=== PATIENT | female | born 1950 | race Caucasian/White ===

== ENCOUNTER 2016-07-24 12:30 | Inpatient (IN) | payer OTHER, MEDICARE ==
[~2016-07-24] VITALS: Ht 165.1 cm; Wt 88.7 kg
[2016-08-05] MEDS ORDERED: TRAM50TA PO (14:08)
[2016-08-05] MEDS ORDERED: MIRTA15 PO (14:08)
[2016-08-05] MEDS ORDERED: ALEN1TAB48 PO (14:08)
[2016-08-05] MEDS ORDERED: AMLO5TAB2 PO (14:08)
[2016-08-05] MEDS ORDERED: OMEP20TA PO (14:08)
[2016-08-05] MEDS ORDERED: LOSA100T PO (14:08)
[2016-08-18] MEDS ORDERED: PROPOFOL 200 MG/20 ML AMP IV ONE (08:54)
[2016-08-18] MEDS ORDERED: PHENYLEPH/NS 1000 MCG/10 ML SYR IV ONE (08:54)
[2016-08-18] MEDS ORDERED: ONDANSETRON HCL 4 MG/2 ML VIAL IV PUSH ONE (08:54)
[2016-08-18] MEDS ORDERED: NEOSTIGMINE METHYLSULFATE 10 MG/10 ML VIAL IV PUSH ONE (08:54)
[2016-08-18 10:36] VITALS: BP 133/81; PULSE 90; RESP 20; TEMP 99.3; O2SAT 95
[2016-08-18] MEDS: CHLORHEXIDINE GLUCONATE 4% SOLN 120 ML BTL TOP SCH (10:45)
[2016-08-18] MEDS ORDERED: SODIUM CHLORID 0.9% 500 ML IV SCH (10:45)
[2016-08-18] MEDS ORDERED: INSULIN HUMAN REGULAR 1,000 UNITS/10 ML VIAL SQ PRN (10:45)
[2016-08-18] MEDS ORDERED: VANCOMYCIN 1000 MG/NS 250 ML (for <70 kg) IV SCH ×2 (10:45)
[2016-08-18] MEDS ORDERED: ceFAZolin 2 GM PREMIX 50 ML IV SCH (10:45)
[2016-08-18] MEDS ORDERED: METOPROLOL TARTRATE 25 MG TAB PO PRN (10:45)
[2016-08-18] MEDS ORDERED: LACTATED RINGER'S 1000 ML IV SCH (10:45)
[2016-08-18] MEDS ORDERED: FAMOTIDINE 20 MG/2 ML VIAL ONE (11:22)
[2016-08-18] MEDS ORDERED: MIDAZOLAM HCL 5 MG/5 ML VIAL ONE (11:22)
[2016-08-18] MEDS ORDERED: BUPIVACAINE HCL PF 0.25% 30 ML VIAL NB ONE (12:06)
[2016-08-18] MEDS ORDERED: GENTAMICIN SULFATE 80 MG/2 ML VIAL IRRIGATION ONE (12:20)
[2016-08-18] MEDS ORDERED: BUPIVACAINE HCL PF 0.5% 30 ML VIAL NB ONE (12:47)
--- NOTE | 2016-08-18 14:25 | PD.OP ---
cc: Johnny Carreno MD Operative Report Date of Surgery: Aug 18, 2016 Preoperative Diagnosis: (1) Osteoarthritis of right knee Postoperative Diagnosis: (1) Osteoarthritis of right knee Procedure: Right total knee arthroplasty Implants used: Biomet Vanguard total knee system size 62.5 press-fit femoral component, size 67 cemented tibial component, size 34 cemented polyethylene patellar button and a 14 mm polyethylene tibial bearing Anesthesia: General with preoperative regional block Surgeon: Johnny Carreno Die Equipment Operator(s): Monae Hudson PA-C ([place]) The surgical procedure was assisted by my physician's assistant softball coach. Her presence was necessary throughout the case for manipulation and positioning of the surgical extremity. My PA was assisting me throughout the duration of this procedure. The skill set of the physician assistant softball coach was medically necessary to complete this procedure. During the surgical case the surgical manager was working at the back table and the physician assistant softball coach was directly assisting me. Operation and Findings: Indications: This 66-year-old females long history of bilateral knee osteoarthritis. She has had several treatment modalities in the past including corticosteroid injection, anti-inflammatory and pain medication, therapy, viscous supplementation and attempts at weight loss. Her problem has been persistent and progressive. She is now severely limited in her activity. X- rays are consistent with advanced osteoporosis which is more pronounced in the lateral compartment with [id number] apposition, osteophyte formation, subchondral sclerosis and associated valgus deformity. Given the alternatives of the treatment she presents for total knee arthroplasty. Procedure and findings: The patient was taken to the operative suite and after undergoing an adequate level of general anesthesia was kept supine on the operating table. Preoperative antibiotics consisted of Ancef 2 g IV and vancomycin 1 g IV. The right lower extremity was then prepped and draped in usual sterile fashion with alcohol and Hibiclens. A standard anterior approach the knee was made with incision centered over the medial one third of the patella. This was carried down through skin and subcutaneous tense tissue with a knife. The quadricep tendon was identified proximally and the patellar tendon distally. A medial parapatellar arthrotomy was made. A small joint effusion was evacuated. Upon entering the knee joint is noted to be marked degenerative changes which were tricompartmental in nature but significantly worse in the lateral compartment. The remnant of the ACL was excised. The menisci were excised. Osteophytes were removed. Attention was first focused on the distal femur where an intramedullary guide was used to make a 5 valgus cut. A sizing jig was then applied and a 62.5 selected. With the cutting block in place the anterior, posterior and chamfer cuts were made. Attention was then focused on the proximal tibia. An extramedullary guide was used. Approximately 4 mm of bone was resected. The varus/valgus alignment was also checked with an extramedullary guide. The tibia was then sized to a 67. A freehand technique was utilized on the patella. This was sized to a 34. Drill holes were made and trial components placed. The 14 mm tibial bearing gave the best range of motion and stability. There was good patellar tracking. These components were therefore selected. The femoral drill holes were made. The tibial cement punches were made. The wound was thoroughly irrigated with pulse lavage. Bone cement was prepared on the back table. After thorough drying, it was applied to the proximal tibia. The tibial component was then impacted in the place. All excess bone cement was removed. The tibial insert was then placed and the locking mechanism seated. The femoral component was then impacted in the place. The knee was then placed in full extension for further compression. After thorough drying bone cement was applied to the undersurface of the patella. The patellar button was seated and held with a compression clamp. All excess bone cement was removed. Once the cement had matured good range of motion, patellar tracking and stability was again noted. The wound was again thoroughly irrigated with pulse lavage. AutoVac drains were left in place. The incision was closed in layers utilizing #1 Vicryl suture on the extensor mechanism, 0 Vicryl suture on the deep tissue, 2-0 Vicryl suture on the subcutaneous tissue and angel on the skin. Sterile dressings were applied the patient was awakened transferred to the hospital bed and taken to the recovery room in stable condition. Estimated blood loss: 100 cc Tourniquet time: 109 minutes Complications: None Johnny Carreno MD Aug 18, 2016 14:25
[2016-08-18] MEDS ORDERED: MISCELLANEOUS NURSING INFORMATION XX PRN (14:30)
[2016-08-18] MEDS ORDERED: Post-op Orders (for Pharmacy) MISC XX ONE (14:30)
[2016-08-18] MEDS ORDERED: MORPHINE SULFATE 8 MG/ML INJ IV PUSH PRN (14:30)
[2016-08-18] MEDS ORDERED: POVIDONE IODINE 10% SOLN 118 ML BOTTLE TOPICAL PRN (14:30)
[2016-08-18] MEDS ORDERED: diphenhydrAMINE HCL 50 MG/ML VIAL IV PRN (14:30)
[2016-08-18] MEDS ORDERED: ALUMINUM/MAGNESIUM/SIMETH 30 ML CUP PO PRN (14:30)
[2016-08-18] MEDS ORDERED: ACETAMINOPHEN 325 MG TAB PO PRN (14:30)
[2016-08-18] MEDS ORDERED: MORPHINE SULFATE 30 MG/30 ML PCA IV SCH (14:30)
[2016-08-18] MEDS ORDERED: MISCELLANEOUS PHARMACY INFORMATION XX ONE (14:30)
[2016-08-18] MEDS ORDERED: BISACODYL 10 MG SUPP PR PRN (14:30)
[2016-08-18] MEDS ORDERED: SODIUM CHLORIDE 0.9% FLUSH 5 ML FLUSH IVF PRN (14:30)
[2016-08-18] MEDS ORDERED: NALOXONE HCL 0.4 MG/ML AMP IV PRN (14:30)
[2016-08-18] MEDS ORDERED: DO NOT ADM ANY ANTICOAGULANT DRUGS XX PRN (14:34)
[2016-08-18] MEDS ORDERED: MORPHINE SULFATE 30 MG/30 ML PCA ONE (14:41)
[2016-08-18] MEDS ORDERED: *morphine SULFATE 8 MG/ML PERIprocedure ONLY ONE (14:42)
[2016-08-18] MEDS ORDERED: fentaNYL CITRATE 250 MCG/5 ML AMP ONE (14:43)
[2016-08-18] MEDS ORDERED: MORPHINE SULFATE 4 MG/ML INJ ONE (14:43)
[2016-08-18] MEDS: LACTATED RINGER'S 1000 ML INJ 1,000 ML IV SCH ×2 (14:52→19:58)
[2016-08-18] MEDS ORDERED: *HYDROmorphone PF 1 MG VIAL PERIprocedural Use ONLY ONE ×2 (14:54→15:49)
--- NOTE | 2016-08-18 15:28 | RADRPT ---
EXAM DATE/TIME: 08/18/2016 14:43 [facility] COMPARISON: No previous studies available for comparison. INDICATIONS : Post op right knee. MEDICAL HISTORY : None. SURGICAL HISTORY : None. ENCOUNTER: Initial ACUITY: 1 day PAIN SCORE: Non-responsive. LOCATION: Right knee FINDINGS: 2 views of the postoperative right knee demonstrate expected postsurgical change related to total rig ht knee arthroplasty. Good anatomic alignment. No evidence of hardware complication. Joint effusion i s noted. Overlying surgical clips. CONCLUSION: Expected postsurgical changes related to total right knee arthroplasty.. Cindy Shafer MD on August 18, 2016 at 15:26 Board Certified Radiologist. This report was verified electronically.
[2016-08-18] MEDS: oxyCODONE/ACETAMINOPHEN 5 MG/325 MG TAB PO PRN ×2 (16:16→22:20)
[2016-08-18] MEDS: ceFAZolin 2 GM PREMIX 50 ML IV SCH ×2 (16:37→22:18)
[2016-08-18] MEDS ORDERED: SODIUM CHLOR 0.9% 250 ML INJ 250 ML ONE (17:24)
[2016-08-18] MEDS ORDERED: SODIUM CHLOR 0.9% 250 ML BAG IV ONE (17:37)
[2016-08-18] MEDS: SODIUM CHLORIDE 0.9% FLUSH 5 ML FLUSH IVF SCH (19:58)
[2016-08-18 20:00] VITALS: BP 118/64; PULSE 105; RESP 16; TEMP 98.5; O2SAT 95
[2016-08-18] MEDS ORDERED: TEMAZEPAM 15 MG CAP PO PRN (21:00)
[2016-08-18] MEDS: PCA - TOTAL MG MORPHINE DELIVERED PER SHIFT SCH (22:00)
[2016-08-19] VITALS (11 sets, daily range): BP systolic 119–166; BP diastolic 60–79; PULSE 110–121; RESP 16–18; TEMP 99.8–102.6; O2SAT 90–95
[2016-08-19] MEDS: ceFAZolin 2 GM PREMIX 50 ML IV SCH (05:03)
[2016-08-19] MEDS: MAGNESIUM HYDROXIDE SUSP 30 ML CUP PO PRN (05:03)
[2016-08-19] MEDS: PCA - TOTAL MG MORPHINE DELIVERED PER SHIFT SCH ×4 (06:00→23:35)
[2016-08-19 06:04] LABS: HEMATOCRIT 28.1 % (35.0-46.0); REVIEW FLAG FINAL
--- NOTE | 2016-08-19 07:07 | PD.ORT.PN ---
Subjective Post Op Day #: 1 Pain Scale: 5 Subjective Remarks The patient is awake alert and answers questions appropriately. She states she had significant pain last night but it is much better this morning. Her WELDER MACHINE OPERATOR is currently controlling her pain. She has no other specific complaint. Objective Vitals Vital Signs Date Time Temp Pulse Resp B/P Pulse Ox O2 Delivery O2 Flow Rate FiO2 08/19/16 06:00 18 08/19/16 04:00 100.9 121 17 153/67 93 08/19/16 02:47 95 Nasal Cannula 2.00 08/19/16 00:00 100.5 120 17 137/63 95 08/18/16 22:00 17 08/18/16 20:00 98.5 105 16 118/64 95 08/18/16 18:15 99.0 104 14 106/69 97 Nasal Cannula 3 08/18/16 17:37 99.0 99 14 122/49 97 Nasal Cannula 3 08/18/16 17:00 90 14 112/79 95 Nasal Cannula 3 08/18/16 16:00 88 14 143/70 95 Nasal Cannula 3 08/18/16 15:30 85 14 135/75 96 Nasal Cannula 3 08/18/16 15:15 82 14 132/87 95 Nasal Cannula 3 08/18/16 15:00 79 14 120/70 96 Nasal Cannula 4 08/18/16 14:52 14 08/18/16 14:45 91 14 144/66 97 Nasal Cannula 4 08/18/16 14:30 75 17 122/68 96 Nasal Cannula 4 08/18/16 14:23 97.8 92 17 142/62 93 Nasal Cannula 4 08/18/16 10:36 99.3 90 20 133/81 95 I/O 08/18/16 08/18/16 08/18/16 08/19/16 08/19/16 08/19/16 07:00 15:00 23:00 07:00 15:00 23:00 Intake Total 2000 ml 922 ml 240 ml Output Total 310 ml 1125 ml 620 ml Balance 1690 ml -203 ml -380 ml Intake Oral 290 ml 240 ml IV Total 632 ml Other 2000 ml Output Urine Total 250 ml 325 ml 600 ml Drainage Total 10 ml 400 ml 20 ml Estimated Blood Loss 50 ml Autotransfusion 400 ml # Bowel Movements 0 0 Result Diagram: 08/19/16 0525 Imaging Last 48 hours Impressions Knee X-Ray 08/18/16 0000 Signed Impressions: Service Date/Time: Thursday, August 18, 2016 14:43 - CONCLUSION: Expected postsurgical changes related to total right knee arthroplasty.. Cindy Shafer MD Procedures Right total knee arthroplasty 08/18/15 Objective Remarks The right lower extremity dressing is dry and intact. She moves her toes and ankle freely. There is no calf discomfort and a negative Homans sign. Neurologically no focal deficit. Assessment & Plan Ortho Post Op Day #: 1 Problem List: (1) Osteoarthritis of right knee Assessment and Plan The patient's orthopedic status is stable postoperative day #1. Progress rehabilitation. Case management for discharge planning. Johnny Carreno MD Aug 19, 2016 07:07
[2016-08-19] MEDS: SODIUM CHLORIDE 0.9% FLUSH 5 ML FLUSH IVF SCH ×2 (09:10→20:31)
[2016-08-19] MEDS: LACTATED RINGER'S 1000 ML INJ 1,000 ML IV SCH ×3 (09:13→23:35)
[2016-08-19] MEDS: ONDANSETRON HCL 4 MG/2 ML VIAL IVP PRN (09:29)
[2016-08-19] MEDS ORDERED: PNEUMOCOCCAL POLYVALENT INJ 25 MCG/0.5 ML SYR IM ONE (10:00)
[2016-08-19] MEDS: oxyCODONE/ACETAMINOPHEN 5 MG/325 MG TAB PO PRN ×2 (10:34→16:41)
[2016-08-19] MEDS: CHLORHEXIDINE GLUCONATE 4% SOLN 120 ML BTL TOP SCH (10:45)
--- NOTE | 2016-08-19 12:48 | PD.CONS ---
HPI Service [facility] Hospitalists Consult Requested By Orthopedic surgery Reason for Consult Medical management. Primary Care Physician Madison Alanis MD Diagnoses: (1) Osteoarthritis of right knee (2) HTN (hypertension) History of Present Illness Ms. Whitman is a 66-year-old female with a history of hypertension, bilateral knee osteoarthritis status post several conservative treatment modalities who underwent right total knee arthroplasty on 08/18/2016. Hospitalist service was consulted for medical management. At the time of this interview, patient has no specific complaints. She denies any chest pain, cough, SOB, fever, chills. Denies any dysuria, hematuria. Denies any changes in her bowel or bladder movement. Earlier today, she had a BM. Review of Systems ROS Limitations: Other (negative except as noted in the history of present illness) Past Family Social History Allergies: Coded Allergies: No Known Allergies (Verified , 08/18/16) Past Medical History Osteoarthritis, hypertension, colon cancer, ovarian cancer Past Surgical History Partial colectomy, hysterectomy Active Ordered Medications Current Medications Chlorhexidine Gluconate 1 applic 1 applic ONCE TOP ; Start 08/18/16 at 10:45; Stop 08/21/16 at 10:44 Lactated Ringer's (Lr 1000 ml Inj) 1,000 ml @ 100 mls/hr Q10H IV Last administered on 08/19/16 09:13; Start 08/18/16 at 14:26 IV Flush (NS Flush) 2 ml UNSCH PRN IVF FLUSH AFTER USING IV ACCESS Last administered on 08/19/16 09:29; Start 08/18/16 at 14:30 IV Flush 2 ml 2 ml BID IVF Last administered on 08/19/16 09:10; Start 08/18/16 at 21:00 Enoxaparin Sodium (Lovenox Inj) 40 mg Q24H SQ ; Start 08/19/16 at 13:30 Morphine Sulfate (Morphine Inj) 4 mg Q3H PRN IV PUSH Pain >7 when off LENS AND FRAMES PRESCRIPTION CLERK; Start 08/18/16 at 14:30 Oxycodone/ Acetaminophen (Percocet 5-325 Mg) 1 tab Q4H PRN PO PAIN LESS THAN 5 ON SCALE; Start 08/18/16 at 14:30 Oxycodone/ Acetaminophen (Percocet 5-325 Mg) 2 tab Q4H PRN PO PAIN SCALE 5 TO 10 Last administered on 08/19/16 10:34; Start 08/18/16 at 14:30 Acetaminophen (Tylenol) 650 mg Q6H PRN PO TEMPERATURE > 101 F; Start 08/18/16 at 14:30 Multivitamins/ Minerals Therapeutic (Theragran M Tab) 1 tab BID PO ; Start 08/19 at 21:00; Stop 10/18/16 at 20:59 Ondansetron HCl (Zofran Inj) 4 mg Q6H PRN IVP NAUSEA OR VOMITING Last administered on 08/19/16 09:29; Start 08/18/16 at 14:30 Docusate Sodium (Colace) 100 mg BID PO ; Start 08/19/16 at 21:00 Al Hydrox/Mg Hydrox/Simethicone (Mag-Al Plus Susp Liq) 30 ml Q6H PRN PO INDIGESTION; Start 08/18/16 at 14:30 Temazepam (Restoril) 15 mg HS PRN PO SLEEP; Start 08/18/16 at 21:00 Bisacodyl (Dulcolax Supp) 10 mg DAILY PRN [place] CONSTIPATION; Start 08/18/16 at 14: 30 Magnesium Hydroxide (Milk Of Magnesia Liq) 30 ml DAILY PRN PO CONSTIPATION Last administered on 08/19/16 05:03; Start 08/18/16 at 14:30 Povidone Iodine (Betadine 10% Top Soln) 30 applic UNSCH X1 PRN TOPICAL WOUND CARE; Start 08/18/16 at 14:30; Stop 08/20/16 at 14:29 Naloxone HCl (Narcan Inj) 0.4 mg UNSCH PRN IV RESPIRATORY RATE LESS THAN 10; Start 08/18/16 at 14:30; Stop 08/20/16 at 14:29 Diphenhydramine HCl (Benadryl Inj) 25 mg Q6H PRN IV ITCHING; Start 08/18/16 at 14:30; Stop 08/20/16 at 14:29 Morphine Sulfate (Morphine 1 Mg/ ml LENS AND FRAMES PRESCRIPTION CLERK) 30 mg UNSCH IV Last administered on 14:52; Start 08/18/16 at 14:30; Stop 08/20/16 at 14:29 LENS AND FRAMES PRESCRIPTION CLERK Dosage Infused (Pha) 1 Q8HR .XX Last administered on 1/10/17at 06:00; Start 08/18/16 at 22:00; Stop 08/20/16 at 21:59 Miscellaneous Information ALL NURSING DEPARTME... UNSCH PRN XX SEE LABEL COMMENTS; Start 08/18/16 at 14:34; Stop 08/19/16 at 14:33 Family History No history of Alzheimer's or Parkinson's. Social History Drinks coffee 2 cups a day, occasional alcohol use. Physical Exam Vital Signs Vital Signs Date Time Temp Pulse Resp B/P Pulse Ox O2 Delivery O2 Flow Rate FiO2 08/19/16 11:44 92 21 08/19/16 08:37 Nasal Cannula 2.00 08/19/16 08:00 101.7 113 18 166/79 95 08/19/16 06:00 18 08/19/16 04:00 100.9 121 17 153/67 93 08/19/16 02:47 95 Nasal Cannula 2.00 08/19/16 00:00 100.5 120 17 137/63 95 08/18/16 22:00 17 08/18/16 20:00 98.5 105 16 118/64 95 08/18/16 18:15 99.0 104 14 106/69 97 Nasal Cannula 3 08/18/16 17:37 99.0 99 14 122/49 97 Nasal Cannula 3 08/18/16 17:00 90 14 112/79 95 Nasal Cannula 3 08/18/16 16:00 88 14 143/70 95 Nasal Cannula 3 08/18/16 15:30 85 14 135/75 96 Nasal Cannula 3 08/18/16 15:15 82 14 132/87 95 Nasal Cannula 3 08/18/16 15:00 79 14 120/70 96 Nasal Cannula 4 08/18/16 14:52 14 08/18/16 14:45 91 14 144/66 97 Nasal Cannula 4 08/18/16 14:30 75 17 122/68 96 Nasal Cannula 4 08/18/16 14:23 97.8 92 17 142/62 93 Nasal Cannula 4 Physical Exam GENERAL: This is a well-nourished, well-developed patient, in no apparent distress. SKIN: No rashes, ecchymoses or lesions. Warm and dry. HEAD: Atraumatic. Normocephalic. No temporal or scalp tenderness. EYES: Pupils equal round and reactive. No injection or drainage. ENT: Nose without bleeding, purulent drainage or septal hematoma. Airway patent. NECK: Trachea midline. No lymphadenopathy. Supple, nontender, no meningeal signs. CARDIOVASCULAR: Regular rate and rhythm without murmurs, gallops, or rubs. No JVD. RESPIRATORY: Clear to auscultation. Breath sounds equal bilaterally. No wheezes , rales, or rhonchi. GASTROINTESTINAL: Abdomen soft, non-tender, nondistended. No guarding. MUSCULOSKELETAL: Extremities without clubbing, cyanosis, or edema. s/p Right TKA. Able to move all toes. NEUROLOGICAL: Awake and alert. Cranial nerves II through XII intact. No focal neurological deficits. Normal speech. Laboratory Laboratory Tests Test 08/19/16 05:25 Hemoglobin 9.3 Hematocrit 28.1 Result Diagram: 08/19/16 0525 Imaging Last Impressions Knee X-Ray 08/18/16 0000 Signed Impressions: Service Date/Time: Thursday, August 18, 2016 14:43 - CONCLUSION: Expected postsurgical changes related to total right knee arthroplasty.. Cindy Shafer MD Assessment and Plan Problem List: (1) Osteoarthritis of right knee ICD Code: M17.11 Status: Acute (2) HTN (hypertension) ICD Code: I10 Status: Acute Assessment and Plan Ms. Whitman is a 66 year old female with a history of HTN, osteoarthritis who underwent right TKA on 08/18/2016. - Right knee osteoarthritis - s/p Right Total knee arthroplasty. - Continue Percocet, Morphine LENS AND FRAMES PRESCRIPTION CLERK - Docusate, Milk of Mag for bowel regimen. Patient already had BM. - Continue incentive spirometry. - Hypertension - Patient had episodes of mild elevation in BP probably related to pain. - Monitor for now. If persistently high, we can start BP meds. - Fever - No cough, fever, dysuria. - Could be post-op and/or atelectasis. - If fever persists, we will obtain UA, CXR. Full code. Sid. Sal Ahn DO Aug 19, 2016 12:48
[2016-08-19] MEDS: ENOXAPARIN SODIUM 40 MG/0.4 ML SYRINGE SQ SCH (13:12)
[2016-08-19] MEDS: MULTIVITAMINS/MINERALS THERAPEUTIC TAB PO SCH (20:31)
[2016-08-19] MEDS: DOCUSATE SODIUM 100 MG CAP PO SCH (20:31)
[2016-08-19] MEDS: CEFEPIME INJ 2,000 MG in SODIUM CHLORIDE 0.9% INJ 100 ML IV SCH (23:53)
[2016-08-20] VITALS (8 sets, daily range): BP systolic 128–158; BP diastolic 63–76; PULSE 99–129; RESP 16–20; TEMP 98.6–101.9; O2SAT 92–96
--- NOTE | 2016-08-20 00:13 | RADRPT ---
EXAM DATE/TIME: 08/19/2016 23:52 [facility] COMPARISON: No previous studies available for comparison. INDICATIONS : Fever. MEDICAL HISTORY : None. SURGICAL HISTORY : Total knee replacement, right. ENCOUNTER: Initial ACUITY: 1 day PAIN SCORE: 08/19 LOCATION: Bilateral chest FINDINGS: A single view of the chest demonstrates the lungs to be symmetrically aerated without evidence of mas s, infiltrate or effusion. The cardiomediastinal contours are unremarkable. Osseous structures are intact. CONCLUSION: No acute disease. Cachorro Diop MD on August 20, 2016 at 0:11 Board Certified Radiologist. This report was verified electronically.
[2016-08-20 05:25] LABS: BACTERIA, URINE RARE /hpf; BLOOD, URINE NEG (NEG); COMMENT (UR) CULT NOT INDICATED; CULTURE IF INDICATED CULT NOT INDICATED; GLUCOSE,URINE NEG (NEG); KETONE, URINE NEG (NEG); NITRITE,URINE NEG (NEG); PH, URINE 6.5 (5.0-8.5); SQUAMOUS EPITHELIAL CELL URINE 1 /hpf (0-5); TRANSITIONAL EPI CELLS, URINE <1 /hpf; URINE COLOR YELLOW (YELLW/STRAW)
[2016-08-20] MEDS: oxyCODONE/ACETAMINOPHEN 5 MG/325 MG TAB PO PRN ×4 (06:26→23:53)
[2016-08-20 06:27] LABS: AUTOMATED NEUTROPHIL # 8.7 TH/MM3 (1.8-7.7); BASOPHIL # 0.1 TH/MM3 (0-0.2); BASOPHIL % 0.4 % (0.0-2.0); EOSINOPHIL # 0.2 TH/MM3 (0-0.4); EOSINOPHIL % 1.5 % (0.0-4.0); HEMATOCRIT 29.5 % (35.0-46.0); HEMO FLAGS DIFF FINAL; LYMPH % 13.7 % (9.0-44.0); LYMPHOCYTE # 1.6 TH/MM3 (1.0-4.8); MEAN CELL VOLUME 83.6 FL (80.0-100.0); MEAN CORPUSCULAR HGB CONC 32.3 % (32.0-36.0); MONO % 11.4 % (0.0-8.0); PLATELET COUNT 191 TH/MM3 (150-450); RED BLOOD COUNT 3.53 MIL/MM3 (4.00-5.30); RED CELL DISTRIBUTION WIDTH 14.6 % (11.6-17.2)
[2016-08-20 06:43] LABS: BICARBONATE 29.6 MEQ/L (21.0-32.0); POTASSIUM 3.9 MEQ/L (3.5-5.1)
--- NOTE | 2016-08-20 07:29 | PD.ORT.PN ---
Subjective Post Op Day #: 2 Subjective Remarks Patient is laying comfortably in bed, awake and alert, answering questions appropriately. She complains of mild right knee pain, pain well controlled. No other complaints noted. Objective Vitals Vital Signs Date Time Temp Pulse Resp B/P Pulse Ox O2 Delivery O2 Flow Rate FiO2 08/20/16 04:00 100.4 108 17 132/63 93 08/20/16 00:00 101.6 129 16 146/65 93 08/19/16 22:48 101.6 08/19/16 22:25 102.6 08/19/16 21:06 90 21 08/19/16 20:00 99.8 110 16 129/60 93 08/19/16 16:00 101.8 116 18 162/72 92 08/19/16 14:00 18 08/19/16 12:00 101.3 112 18 119/60 90 08/19/16 11:44 92 21 08/19/16 08:37 Nasal Cannula 2.00 08/19/16 08:00 101.7 113 18 166/79 95 I/O 08/19/16 08/19/16 08/19/16 08/20/16 08/20/16 08/20/16 07:00 15:00 23:00 07:00 15:00 23:00 Intake Total 1135 ml 1680 ml 360 ml 240 ml Output Total 620 ml Balance 515 ml 1680 ml 360 ml 240 ml Intake Oral 240 ml 1200 ml 360 ml 240 ml IV Total 895 ml 480 ml Output Urine Total 600 ml Drainage Total 20 ml # Voids 2 2 4 # Bowel Movements 0 0 0 0 Result Diagram: 08/20/16 0504 08/20/16 0504 Imaging Last 48 hours Impressions Knee X-Ray 08/18/16 0000 Signed Impressions: Service Date/Time: Thursday, August 18, 2016 14:43 - CONCLUSION: Expected postsurgical changes related to total right knee arthroplasty.. Cindy Shafer MD Procedures Right total knee arthroplasty 08/18/15 Objective Remarks The right lower extremity dressing is dry and intact, lower extremity in knee immobilizer splint. She moves her toes and ankle freely. There is no calf discomfort and a negative Homans sign. Neurologically no focal deficit. Assessment & Plan Ortho Post Op Day #: 2 Problem List: (1) Osteoarthritis of right knee Assessment and Plan The patient's orthopedic status is stable postoperative day #2. Progress rehabilitation. Continue pain control and bowel regimen. Case management for discharge planning. She plans to go to rehab center. Monae Hudson Aug 20, 2016 07:29
[2016-08-20] MEDS: CEFEPIME INJ 2,000 MG in SODIUM CHLORIDE 0.9% INJ 100 ML IV SCH ×3 (08:40→23:51)
[2016-08-20] MEDS: DOCUSATE SODIUM 100 MG CAP PO SCH ×2 (08:40→20:38)
[2016-08-20] MEDS: MULTIVITAMINS/MINERALS THERAPEUTIC TAB PO SCH ×2 (08:40→20:38)
[2016-08-20] MEDS: SODIUM CHLORIDE 0.9% FLUSH 5 ML FLUSH IVF SCH ×2 (08:41→20:57)
[2016-08-20] MEDS: CHLORHEXIDINE GLUCONATE 4% SOLN 120 ML BTL TOP SCH (09:55)
[2016-08-20] MEDS: ENOXAPARIN SODIUM 40 MG/0.4 ML SYRINGE SQ SCH (13:34)
[2016-08-20] MEDS: MAGNESIUM HYDROXIDE SUSP 30 ML CUP PO PRN ×2 (13:34→20:38)
[2016-08-20] MEDS: PCA - TOTAL MG MORPHINE DELIVERED PER SHIFT SCH ×2 (13:44→14:00)
[2016-08-20] MEDS: ONDANSETRON HCL 4 MG/2 ML VIAL IVP PRN (15:27)
[2016-08-20] MEDS: LACTATED RINGER'S 1000 ML INJ 1,000 ML IV SCH (16:26)
--- NOTE | 2016-08-20 19:38 | HHI.PR ---
Subjective Remarks Follow up for Right TKA, fever. Ms. Whitman is doing well. Had some fever overnight. Denies any cough, dysuria, hematuria. CXR and UA were unremarkable. Objective Vitals Vital Signs Date Time Temp Pulse Resp B/P Pulse Ox O2 Delivery O2 Flow Rate FiO2 08/20/16 16:00 98.6 103 17 144/71 93 08/20/16 12:33 99.5 103 17 128/68 96 08/20/16 11:08 95 21 08/20/16 08:00 99.2 99 18 129/70 92 08/20/16 04:00 100.4 108 17 132/63 93 08/20/16 00:00 101.6 129 16 146/65 93 08/19/16 22:48 101.6 08/19/16 22:25 102.6 08/19/16 21:06 90 21 08/19/16 20:00 99.8 110 16 129/60 93 I/O 08/19/16 08/19/16 08/19/16 08/20/16 08/20/16 08/20/16 06:59 14:59 22:59 06:59 14:59 22:59 Intake Total 1135 ml 1680 ml 360 ml 240 ml 583 ml 960 ml Output Total 620 ml Balance 515 ml 1680 ml 360 ml 240 ml 583 ml 960 ml Intake Oral 240 ml 1200 ml 360 ml 240 ml 960 ml IV Total 895 ml 480 ml 583 ml Output Urine Total 600 ml Drainage Total 20 ml # Voids 2 2 4 3 # Bowel Movements 0 0 0 0 Result Diagram: 08/20/16 0504 08/20/16 0504 Imaging Last Impressions Chest X-Ray 08/19/16 0000 Signed Impressions: Service Date/Time: Friday, August 19, 2016 23:52 - CONCLUSION: No acute disease. Cachorro Diop MD Knee X-Ray 08/18/16 0000 Signed Impressions: Service Date/Time: Thursday, August 18, 2016 14:43 - CONCLUSION: Expected postsurgical changes related to total right knee arthroplasty.. Cindy Shafer MD Objective Remarks GENERAL: AOX3, NAD. SKIN: Warm and dry. HEAD: Normocephalic. EYES: No scleral icterus. No injection or drainage. NECK: Supple, trachea midline. No JVD or lymphadenopathy. CARDIOVASCULAR: Regular rate and rhythm without murmurs, gallops, or rubs. RESPIRATORY: Breath sounds equal bilaterally. No accessory muscle use. GASTROINTESTINAL: Abdomen soft, non-tender, nondistended. MUSCULOSKELETAL: No cyanosis, or edema. s/p Right TKA. BACK: Nontender without obvious deformity. No CVA tenderness. Procedures 08/18/2016 Right total knee arthroplasty Implants used: Biomet Vanguard total knee system size 62.5 press-fit femoral component, size 67 cemented tibial component, size 34 cemented polyethylene patellar button and a 14 mm polyethylene tibial bearing A/P Problem List: (1) Osteoarthritis of right knee ICD Code: M17.11 Status: Acute (2) HTN (hypertension) ICD Code: I10 Status: Acute Assessment and Plan Ms. Whitman is a 66 year old female with a history of HTN, osteoarthritis who underwent right TKA on 08/18/2016. - Right knee osteoarthritis - s/p Right Total knee arthroplasty. - Continue Percocet, Morphine CARE TRANSPORT NURSE - Docusate, Milk of Mag for bowel regimen. Patient already had BM. - Continue incentive spirometry. - Hypertension - Patient had episodes of mild elevation in BP probably related to pain. - Monitor for now. If persistently high, we can start BP meds. - Fever - No cough, fever, dysuria. - Could be post-op and/or atelectasis. -UA, CXR unremarkable. Continue Cefepime. If no fever for 24 hours, we will d /c abx. Full code. Lovenox. Sal Ahn DO Aug 20, 2016 19:38
[2016-08-21] MEDS: LACTATED RINGER'S 1000 ML INJ 1,000 ML IV SCH (00:10)
[2016-08-21 01:01] VITALS: TEMP 101
[2016-08-21 04:10] VITALS: BP 126/72; PULSE 93; RESP 16; TEMP 97.9; O2SAT 94
--- NOTE | 2016-08-21 07:07 | PD.ORT.PN ---
Subjective Post Op Day #: 3 Pain Scale: 3 Subjective Remarks The patient is awake alert and answers questions appropriately. She states her pain is improving. She has no other specific complaint and states she is ready to go to rehabilitation today. Objective Vitals Vital Signs Date Time Temp Pulse Resp B/P Pulse Ox O2 Delivery O2 Flow Rate FiO2 08/21/16 04:10 97.9 93 16 126/72 94 08/21/16 01:01 101.0 08/20/16 23:55 101.9 113 20 156/76 94 08/20/16 20:00 100.2 102 18 158/74 93 08/20/16 16:00 98.6 103 17 144/71 93 08/20/16 12:33 99.5 103 17 128/68 96 08/20/16 11:08 95 21 08/20/16 08:00 99.2 99 18 129/70 92 I/O 08/20/16 08/20/16 08/20/16 08/21/16 08/21/16 08/21/16 07:00 15:00 23:00 07:00 15:00 23:00 Intake Total 240 ml 1543 ml 240 ml 240 ml Balance 240 ml 1543 ml 240 ml 240 ml Intake Oral 240 ml 960 ml 240 ml 240 ml IV Total 583 ml # Voids 4 3 2 1 # Bowel Movements 0 0 Result Diagram: 08/20/16 0504 08/20/16 0504 Imaging Last 48 hours Impressions Knee X-Ray 08/18/16 0000 Signed Impressions: Service Date/Time: Thursday, August 18, 2016 14:43 - CONCLUSION: Expected postsurgical changes related to total right knee arthroplasty.. Cindy Shafer MD Procedures Right total knee arthroplasty 08/18/15 Objective Remarks The right lower extremity dressing is dry and intact, lower extremity in knee immobilizer splint. She moves her toes and ankle freely. There is no calf discomfort and a negative Homans sign. Neurologically no focal deficit. Assessment & Plan Ortho Post Op Day #: 3 Problem List: (1) Osteoarthritis of right knee Assessment and Plan The patient's orthopedic status is stable postoperative day #3 for discharge. Follow-up as scheduled. Prescriptions on chart. Johnny Carreno MD Aug 21, 2016 07:07
[2016-08-21] MEDS ORDERED: OXYC1TAB63 PO (07:10)
[2016-08-21] MEDS ORDERED: ENOX40P SQ (07:10)
[2016-08-21] MEDS ORDERED: MISC-163 (07:13)
[2016-08-21] MEDS ORDERED: WALKER WHEELS/F1 MIS (07:13)
[2016-08-21] MEDS ORDERED: CPMMACHINE (07:13)
--- NOTE | 2016-08-21 07:22 | HHI.DS ---
Discharge Summary Admission Date Aug 18, 2016 at 09:56 Discharge Date: Aug 21, 2016 Admitting Diagnosis Osteoarthritis right knee Diagnosis: (1) Osteoarthritis of right knee (2) HTN (hypertension) Procedures Right total knee arthroplasty 08/18/15 Brief History This is a 66 year old female patient with a long history of bilateral knee osteoarthritis. She has had several treatment modalities in the past including corticosteroid injection, anti-inflammatory and pain medication, therapy, viscous supplementation and attempted weight loss. Her problem is been persistent and progressive. It is worse on the right. She is severely limited in her activity. X-rays are consistent with advanced osteoarthritis which is more pronounced the lateral compartment with zute-by-fogx apposition, osteophyte formation and subchondral sclerosis and associated valgus deformity. Given the alternatives of the treatment she presents for total knee arthroplasty. CBC/BMP: 08/20/16 0504 08/20/16 0504 Significant Findings Laboratory Tests Test 08/19/16 08/20/16 08/20/16 05:25 04:55 05:04 Hemoglobin 9.3 GM/DL 9.5 GM/DL (11.6-15.3) (11.6-15.3) Hematocrit 28.1 % 29.5 % (35.0-46.0) (35.0-46.0) Urine Leukocyte Esterase SMALL (NEG) Urine WBC 6 /hpf (0-5) Urine Bacteria RARE /hpf (NONE) White Blood Count 12.0 TH/MM3 (4.0-11.0) Red Blood Count 3.53 MIL/MM3 (4.00-5.30) Neutrophils (%) (Auto) 73.0 % (16.0-70.0) Monocytes (%) (Auto) 11.4 % (0.0-8.0) Neutrophils # (Auto) 8.7 TH/MM3 (1.8-7.7) Monocytes # (Auto) 1.4 TH/MM3 (0-0.9) Random Glucose 113 MG/DL (74-106) Imaging Postoperative x-rays of the right knee 08/18/16 reveals good positioning of the total knee components. Last 72 hours Impressions Chest X-Ray 08/19/16 0000 Signed Impressions: Service Date/Time: Friday, August 19, 2016 23:52 - CONCLUSION: No acute disease. Cachorro Diop MD PE at Discharge The right lower extremity dressing is dry and intact, lower extremity in knee immobilizer splint. She moves her toes and ankle freely. There is no calf discomfort and a negative Homans sign. Neurologically no focal deficit. Hospital Course On the day of admission the patient was taken to the operating room where she underwent a right total knee arthroplasty. The patient tolerated the procedure well. For details of the operative procedure please see dictated operative note. The patient was placed on Ancef for infection prophylaxis and Lovenox for DVT prophylaxis. Physical therapy was consulted for lower extremity exercise and gait training per TKR protocol. Case management was consulted for discharge planning. Patient had a low-grade fever but was afebrile on postoperative day #3. Her wound was noted to be healing well. She has minimal discomfort. Her postoperative hemoglobin was 9.5 on postoperative day #2. The patient is discharged to a rehabilitation facility. She will follow with the undersigned in approximately 3 weeks. Orders have been given for wound care and staple removal. She was prescribed Percocet for pain and will continue Lovenox for DVT prophylaxis. The patient acknowledges full understanding of the plan of treatment and agrees to it. Pt Condition on Discharge: Good Discharge Disposition: Discharge to SNF Discharge Instructions Diet Instructions: As Tolerated, No Restrictions Activities You Can Perform: Full Weight Bearing Activities to Avoid: Lifting/Bending Johnny Carreno MD Aug 21, 2016 07:22
[2016-08-21 08:00] VITALS: BP 143/62; PULSE 106; RESP 18; TEMP 98.9; O2SAT 94
--- NOTE | 2016-08-21 08:44 | HHI.PR ---
Subjective Remarks Follow up for right total knee arthroplasty. Patient has been having off and on fever. Some mild cough. Denies any chest pain, SOB. Objective Vitals Vital Signs Date Time Temp Pulse Resp B/P Pulse Ox O2 Delivery O2 Flow Rate FiO2 08/21/16 04:10 97.9 93 16 126/72 94 08/21/16 01:01 101.0 08/20/16 23:55 101.9 113 20 156/76 94 08/20/16 20:00 100.2 102 18 158/74 93 08/20/16 16:00 98.6 103 17 144/71 93 08/20/16 12:33 99.5 103 17 128/68 96 08/20/16 11:08 95 21 I/O 08/20/16 08/20/16 08/20/16 08/21/16 08/21/16 08/21/16 07:00 15:00 23:00 07:00 15:00 23:00 Intake Total 240 ml 1543 ml 240 ml 240 ml Balance 240 ml 1543 ml 240 ml 240 ml Intake Oral 240 ml 960 ml 240 ml 240 ml IV Total 583 ml # Voids 4 3 2 1 # Bowel Movements 0 0 Result Diagram: 08/20/16 0504 08/20/16 0504 Imaging Last Impressions Chest X-Ray 08/19/16 0000 Signed Impressions: Service Date/Time: Friday, August 19, 2016 23:52 - CONCLUSION: No acute disease. Cachorro Diop MD Knee X-Ray 08/18/16 0000 Signed Impressions: Service Date/Time: Thursday, August 18, 2016 14:43 - CONCLUSION: Expected postsurgical changes related to total right knee arthroplasty.. Cindy Shafer MD Objective Remarks GENERAL: AOX3, NAD. SKIN: Warm and dry. HEAD: Normocephalic. EYES: No scleral icterus. No injection or drainage. NECK: Supple, trachea midline. No JVD or lymphadenopathy. CARDIOVASCULAR: Regular rate and rhythm without murmurs, gallops, or rubs. RESPIRATORY: Breath sounds equal bilaterally. No accessory muscle use. GASTROINTESTINAL: Abdomen soft, non-tender, nondistended. MUSCULOSKELETAL: No cyanosis, or edema. s/p Right TKA. BACK: Nontender without obvious deformity. No CVA tenderness. Procedures 08/18/2016 Right total knee arthroplasty Implants used: [employer] Vanguard total knee system size 62.5 press-fit femoral component, size 67 cemented tibial component, size 34 cemented polyethylene patellar button and a 14 mm polyethylene tibial bearing A/P Problem List: (1) Osteoarthritis of right knee ICD Code: M17.11 Status: Acute (2) HTN (hypertension) ICD Code: I10 Status: Acute Assessment and Plan Ms. Whitman is a 66 year old female with a history of HTN, osteoarthritis who underwent right TKA on 08/18/2016. - Right knee osteoarthritis - s/p Right Total knee arthroplasty. - Continue Percocet, Morphine [employer] - Docusate, Milk of Mag for bowel regimen. Patient already had BM. - Continue incentive spirometry. - Hypertension - Patient had episodes of mild elevation in BP probably related to pain. - Monitor for now. If persistently high, we can start BP meds. - Fever - No cough, fever, dysuria. - Could be post-op and/or atelectasis. - UA, CXR unremarkable. - Mild cough - possibly bronchitis. - Will start patient on Levaquin 750mg Qday for 5 days. Full code. Lovenox. Sal Ahn DO Aug 21, 2016 8:44 am
[2016-08-21] MEDS ORDERED: LEVA750T PO (08:45)
[2016-08-21] MEDS: CEFEPIME INJ 2,000 MG in SODIUM CHLORIDE 0.9% INJ 100 ML IV SCH (08:58)
[2016-08-21] MEDS: DOCUSATE SODIUM 100 MG CAP PO SCH (08:59)
[2016-08-21] MEDS: oxyCODONE/ACETAMINOPHEN 5 MG/325 MG TAB PO PRN (08:59)
[2016-08-21] MEDS: MULTIVITAMINS/MINERALS THERAPEUTIC TAB PO SCH (08:59)
[2016-08-21] MEDS: SODIUM CHLORIDE 0.9% FLUSH 5 ML FLUSH IVF SCH (08:59)
[2016-08-21 12:00] VITALS: BP 115/54; PULSE 101; RESP 18; TEMP 98.6; O2SAT 96
== END 2016-08-21 13:20 | DRG 470 ==
LOC: HSDI 08-18 09:56 → N06B 08-18 18:26 → N06A 08-18 18:33
PROVIDERS: ADMIT Orthopaedic Surgery Sports Medicine; ATTEND Orthopaedic Surgery Sports Medicine
PROC: 3E0T3CZ (ICD-10-PCS; 2016-08-18)
PROC: 0SRC0J9 Replacement of Right Knee Joint with Synthetic Substitute, Cemented, Open Approach (ICD-10-PCS; principal; 2016-08-18 11:47)
DX: M17.0 Bilateral primary osteoarthritis of knee (principal); I10 Essential (primary) hypertension; M81.0 Age-related osteoporosis without current pathological fracture; Z85.038 Personal history of other malignant neoplasm of large intestine; Z85.43 Personal history of malignant neoplasm of ovary; R50.9 Fever, unspecified; R05 Cough; M21.061 Valgus deformity, not elsewhere classified, right knee; Z23 Encounter for immunization
CPT/HCPCS: 71010; 73560; 80048; 81001; 85014; 85018; 85025; 86850; 86891; 86900; 86901; 87040; 90471; 90732; 94150; C1776; G0009; J0690; J0692; J1170; J1580; J1650; J2250; J2270; J2370; J2405; J2710; J3010; J3370; J7050; J7120; L1830